=== PATIENT | female | born 1965 | race Caucasian/White ===

== ENCOUNTER 2017-12-13 09:13 | Day surgery (SDC) | payer OTHER ==
[~2017-12-13 09:13] MED LIST: ATROPINE 1 MG/10 ML SYRINGE IV; CEFAZOLIN 1 GM INJ; DIPHENHYDRAMINE 50 MG INJ IV; EPHEDrine SULFATE 50 MG/5 ML SYG IV; FENTAnyl 50 MCG/ML VIAL IV; HYDROmorphONE (0.2 MG/ML) 10ML SYG IV; LABETALOL HCL 20MG INJ IV; MEPERIDINE 25 MG INJ IV; MIDAZOLAM 1 MG/ML 2 ML INJ IV; OXYCODONE/ACETAMINOPHEN (5/325) TAB PO; SOD CHLORIDE 0.9% 1,000 ML IV; SUCCINYLCHOLINE CHLORIDE 100 MG/5 ML SYG IV; hydrALAzine 20 MG INJ IV; morphine (1 MG/ML) 10ML SYRINGE IV
[2017-12-13] MEDS ORDERED: LIDOCAINE 2% (SDV) 5 ML INJ (09:56)
[2017-12-13] MEDS ORDERED: ROCURONIUM 50 MG INJ (09:56)
[2017-12-13] MEDS ORDERED: NEOSTIGMINE 3 MG/3 ML SYRINGE (09:56)
[2017-12-13] MEDS ORDERED: GLYCOPYRROLATE 0.4 MG INJ (09:56)
[2017-12-13] MEDS ORDERED: PROPOFOL 20 ML (09:56)
[2017-12-13] MEDS ORDERED: FENTAnyl 50 MCG/ML VIAL (09:56)
[2017-12-13] MEDS ORDERED: MIDAZOLAM 1 MG/ML 2 ML INJ (09:59)
[2017-12-13] MEDS ORDERED: DEXAMETHASONE 4 MG/ML 1 ML INJ (09:59)
[2017-12-13] MEDS ORDERED: ONDANSETRON 4 MG INJ (10:00)
[2017-12-13] MEDS ORDERED: HYDROCODONE/APAP (5/325) TAB PO (11:00)
[2017-12-13] MEDS ORDERED: ACETAMINOPHEN 325 MG TAB PO (11:00)
[2017-12-13] MEDS ORDERED: morphine 2 MG INJ IV (11:00)
[2017-12-13] MEDS ORDERED: ONDANSETRON 4 MG INJ IV (11:00)
[2017-12-13] MEDS: LIDOCAINE 1%/EPI 30 ML INJ (11:18)
[2017-12-13] MEDS ORDERED: BACITRACIN/POLYMYXIN 28.35 GM OINT TOP (11:52)
[2017-12-13] MEDS: FENTAnyl 50 MCG/ML VIAL IV (12:27)
[2017-12-13] MEDS: ONDANSETRON 4 MG INJ IV (12:44)
== END 2017-12-13 13:45 | disposition home or self-care (01) ==
LOC: SDS 09:13
DX: C44.311 Basal cell carcinoma of skin of nose (principal); L57.8 Other skin changes due to chronic exposure to nonionizing radiation; I10 Essential (primary) hypertension; E78.5 Hyperlipidemia, unspecified; I50.9 Heart failure, unspecified; E03.9 Hypothyroidism, unspecified
CPT/HCPCS: 14060; 88307; 88331

== ENCOUNTER 2018-10-15 09:13 | Day surgery (SDC) | payer OTHER ==
[2018-10-15 10:37] LABS: ANION GAP 12 (5-13); BLOOD UREA NITROGEN 10 mg/dl (7-20); CARBON DIOXIDE 26 mmol/L (21-31); CHLORIDE 106 mmol/L (97-110); CREATININE 0.68 mg/dl (0.44-1.00); Estimated GFR > 60 mL/min (>60); GLUCOSE 117 mg/dl (70-220); POTASSIUM 4.3 mmol/L (3.5-5.1); SODIUM 144 mmol/L (135-144)
[2018-10-15] MEDS ORDERED: IODIXANOL LOCM 100 ML BTL (12:29)
[2018-10-15] MEDS ORDERED: LIDOCAINE 1% (MDV) 20 ML INJ (12:29)
[2018-10-15] MEDS ORDERED: FENTAnyl 50 MCG/ML VIAL (12:41)
[2018-10-15] MEDS ORDERED: MIDAZOLAM 1 MG/ML 2 ML INJ (12:42)
[2018-10-15] MEDS ORDERED: HYDROCODONE/APAP (5/325) TAB (13:53)
[2018-10-15] MEDS: HYDROCODONE/APAP (5/325) TAB PO (14:02)
[2018-10-15] MEDS: ACETAMINOPHEN 325 MG TAB PO (14:05)
== END 2018-10-15 17:45 | disposition home or self-care (01) ==
LOC: CCL 09:13 → SDS 09:13 → CCL 17:45
DX: I11.0 Hypertensive heart disease with heart failure (principal); I42.8 Other cardiomyopathies; I50.9 Heart failure, unspecified; E03.9 Hypothyroidism, unspecified; E78.5 Hyperlipidemia, unspecified; R94.31 Abnormal electrocardiogram [ECG] [EKG]
CPT/HCPCS: 80048; 93458